=== PATIENT | female | born 1990 | race Caucasian/White ===

== ENCOUNTER 2020-11-07 06:56 | Day surgery (SDC) | payer BC ==
[2020-11-07] MEDS ORDERED: KEFZOL 1 GM/50 ML PREMIX** 1 GM/50 ML IVPB IV SCH (07:15)
[2020-11-07] MEDS ORDERED: XYLOCAINE 1% HCL 20 ML MDV ONE (07:19)
[2020-11-07] MEDS ORDERED: ASTRINGYN 8 GM TP ONE (07:19)
[2020-11-07] MEDS ORDERED: Lactated Ringers 1,000 ML IV SCH (07:30)
[2020-11-07] MEDS ORDERED: CEFAZOLIN 2 GM-D5W BAG** 2 GM/50 ML ML IV ONE (07:40)
[2020-11-07] MEDS ORDERED: Lactated Ringers 1,000 ML IV ONE (07:40)
[2020-11-07] MEDS ORDERED: KEFZOL 1 GM/50 ML PREMIX** 1 GM/50 ML IVPB IV ONE (07:42)
[2020-11-07] MEDS ORDERED: XYLOCAINE 1%/Epi 1:100000 MDV 20 ML ONE (08:00)
[2020-11-07] MEDS ORDERED: SUBLIMAZE 100 MCG/2 ML ONE (08:57)
[2020-11-07] MEDS ORDERED: Zofran 4 MG/2 ML VIAL ONE (08:57)
[2020-11-07] MEDS ORDERED: Xylocaine-Mpf 2% 5 Ml Vial ONE (08:57)
[2020-11-07] MEDS ORDERED: Decadron 4 MG INJ ONE (08:57)
[2020-11-07] MEDS ORDERED: DIPRIVAN 200 MG/20 ML IV ONE (08:57)
[2020-11-07] MEDS ORDERED: Versed 2 MG/2 ML Injection ONE (09:00)
[2020-11-07 10:53] VITALS: BP 141/82; PULSE 87; O2SAT 99
--- NOTE | 2020-11-08 10:06 | OP ---
SURGERY DATE/TIME: 11/07/2020916 PREOPERATIVE DIAGNOSIS: Severe cervical dysplasia. POSTOPERATIVE DIAGNOSIS: Severe cervical dysplasia. PROCEDURE: Loop electrosurgical excision procedure. SURGEON: Siddhartha Alas D.O. HAIRS[employer]ING I INSPECTOR: correctional maintenance technician. ANESTHESIA: General. ESTIMATED BLOOD LOSS: Minimal. COMPLICATIONS: None. INDICATIONS: The risks, benefits, indications and alternatives of the procedure were reviewed with the patient prior to procedure. The patient understood the risk of infection, bleeding, uterine perforation, pelvic infection, cervical incompetence as well as anorgasmia and decreased sex drive associated with the procedure. However she desires to have this surgery as a possible means to alleviate her current medical condition. DESCRIPTION OF PROCEDURE AND FINDINGS: At this point the patient is taken to the operating room, given general sedation, placed in dorsal lithotomy position. Prepped and draped in the usual sterile fashion. A coated speculum is then placed into the patient's vagina and the cervix is then injected circumferentially with 1% lidocaine with epinephrine and approximately 8 cc was given. From this point the loop instrument was then used with a right to left motion. The loop instrument was used to excise the ectocervical tissue with in depth of 7 to 8 mm of ectocervical tissue was excised without complication. An additional top hat was taken of 2 to 3 mm of endocervical tissue which was taken without complication as well. Hemostasis was obtained by placing a loop admissions recruiter ball on the surface of the cervix where hemostasis obtained. From this point Monsel solution was then subsequently placed on the surface of the cervix and additionally there was no bleed that was noted from the cervix. From this point all instruments were then removed from the patient's vaginal region. The patient was then taken out of the dorsal lithotomy position, was taken out of position and then was taken out of anesthesia and subsequently taken to the recovery room in stable condition. All instruments and laps were accounted for x2.
== END 2020-11-07 11:05 | disposition home or self-care (01) ==
LOC: SDC 06:56
PROVIDERS: ATTEND Obstetrics & Gynecology
DX: D06.9 Carcinoma in situ of cervix, unspecified (principal); N72 Inflammatory disease of cervix uteri
CPT/HCPCS: 57522; 84703; 88307; J0690; J1100; J2250; J2405; J2704; J3010; A9270-GY